=== PATIENT | male | born 1970 | race Caucasian/White ===

== ENCOUNTER 2023-12-26 09:34 | Emergency (ER) | payer MEDICAID, OTHER, SELFPAY ==
[~2023-12-26] VITALS: Ht 165.1 cm; Wt 63.6 kg
[2023-12-26 10:02] VITALS: BP 148/87; TEMP 97.7; O2SAT 98
[2023-12-26 10:44] LABS: HEMATOCRIT 40.3 % (42.0-52.0); MEAN CORPUSCULAR HEMOGLOBIN 32.2 pg (27.0-33.0); MEAN CORPUSCULAR HGB CONC 34.7 g/dl (32.0-36.5); MEAN CORPUSCULAR VOLUME 92.6 fl (80.0-96.0); PLATELET COUNT, AUTOMATED 341 10^3/uL (150-450); RED BLOOD COUNT 4.35 10^6/uL (4.30-6.10); WHITE BLOOD COUNT 12.1 10^3/uL (4.0-10.0)
[2023-12-26 11:12] LABS: AMPHETAMINES LEVEL URINE NEGATIVE (NEGATIVE); BARBITURATES URINE NEGATIVE (NEGATIVE); BENZODIAZEPINES URINE NEGATIVE (NEGATIVE); COCAINE METABOLITE URINE NEGATIVE (NEGATIVE); METHADONE URINE NEGATIVE (NEGATIVE); OPIATES URINE NEGATIVE (NEGATIVE); PHENCYCLIDINE URINE NEGATIVE (NEGATIVE)
[2023-12-26 11:18] LABS: ETHYL ALCOHOL (ETHANOL) 0.004 % (0.000-0.010)
[2023-12-26 11:20] LABS: ALBUMIN 3.3 G/DL (3.2-5.2); ALKALINE PHOSPHATASE 73 U/L (46-116); ALT/SGPT 17 U/L (7.0-40); AST/SGOT 25 U/L (<34); BILIRUBIN,DIRECT 0.2 MG/DL (<0.4); BILIRUBIN,TOTAL 0.5 MG/DL (0.3-1.2); BLOOD UREA NITROGEN 9 MG/DL (9-23); CALCIUM LEVEL 9.4 MG/DL (8.5-10.1); CARBON DIOXIDE LEVEL 27 MMOL/L (20-31); CHLORIDE LEVEL 105 MMOL/L (98-107); CREATININE FOR GFR 0.59 MG/DL (0.70-1.30); GLOMERULAR FILTRATION RATE > 60.0 (>56); GLUCOSE, FASTING 101 MG/DL (60-100); POTASSIUM SERUM 4.1 MMOL/L (3.5-5.1); SALICYLATE LEVEL < 3.0 MG/DL (<30); SODIUM LEVEL 136 MMOL/L (136-145); TOTAL PROTEIN 6.7 G/DL (5.7-8.2)
[2023-12-26 11:21] LABS: CANNABINOIDS URINE POSITIVE (NEGATIVE)
[2023-12-26] MEDS: FOLIC ACID 1MG TAB PO SCH (11:50)
[2023-12-26] MEDS: THIAMINE 100 MG TAB PO SCH (11:50)
[2023-12-26] MEDS: MULTIVITAMINS/MINERALS THERAP 1 TAB PO SCH (11:50)
[2023-12-26] MEDS ORDERED: LORazepam 2 MG TAB PO PRN (12:00)
== END 2023-12-26 12:27 | disposition home or self-care (01) ==
LOC: M ED 09:34
DX: F43.0 Acute stress reaction (principal); F17.210 Nicotine dependence, cigarettes, uncomplicated; F10.10 Alcohol abuse, uncomplicated

== ENCOUNTER → 2024-12-24 | Outpatient (CLI) | payer OTHER | LOC: M RAD 13:50 | PROVIDERS: ATTEND Neurological Surgery | DX: M50.00 Cervical disc disorder with myelopathy, unspecified cervical region (principal) ==

== ENCOUNTER 2025-01-22 09:47 | Observation (INO) | payer OTHER ==
[~2025-01-22] VITALS: Ht 162.6 cm; Wt 71.0 kg
[~2025-01-22 09:47] MED LIST: GABA-1171 PO
[2025-01-22] MEDS: LR 1,000 ML IV SCH ×2 (10:29→20:25)
[2025-01-22] MEDS ORDERED: FAMOTIDINE 20 MG/2 ML VIAL IVP ONE (10:30)
[2025-01-22] MEDS ORDERED: GABAPENTIN 300 MG CAP PO ONE (10:30)
[2025-01-22] MEDS ORDERED: LIDOCAINE 2% 100 MG/5 ML SDV (FOR ANES.) As Ordered ONE (10:45)
[2025-01-22] MEDS ORDERED: SUCCINYLCHOLINE 100MG/5ML SYRINGE As Ordered ONE (10:45)
[2025-01-22] MEDS ORDERED: ROCURONIUM BROMIDE 50MG/5ML VIAL As Ordered ONE (10:45)
[2025-01-22] MEDS ORDERED: MIDAZOLAM INJ 2 MG/2 ML VIAL As Ordered ONE (10:46)
[2025-01-22] MEDS ORDERED: REMIFENTANIL 1MG VIAL As Ordered ONE (11:16)
[2025-01-22] MEDS ORDERED: PHENYLEPHRINE 10MG/ML 1ML VIAL As Ordered ONE (12:47)
[2025-01-22] MEDS: LIDOCAINE W/EPINEPHrine 1% 20 ML VIAL As Ordered ONE (12:57)
[2025-01-22] MEDS: ceFAZolin SOD 2 GM IV ONCE IV ONE (13:44)
[2025-01-22] MEDS ORDERED: LABETALOL 100 MG/20 ML VIAL As Ordered ONE (14:37)
[2025-01-22] MEDS ORDERED: PROPOFOL 1,000 MG/100 ML VIAL As Ordered ONE (14:51)
[2025-01-22] MEDS ORDERED: PHENYLephrine 500MCG 5ML (100MCG/ML) SYRINGE As Ordered ONE (14:51)
[2025-01-22] MEDS ORDERED: SEVOFLURANE INHAL SOLN 250 ML BTL As Ordered ONE (15:39)
[2025-01-22] MEDS ORDERED: ACETAMINOPHEN 1000MG/100ML IV BAG As Ordered ONE (16:35)
[2025-01-22] MEDS ORDERED: HYDROmorphone HCL 2 MG/ML 1 ML VIAL As Ordered ONE (20:00)
[2025-01-22] MEDS ORDERED: ONDANSETRON 4MG/2ML VIAL As Ordered ONE (20:06)
[2025-01-22] MEDS ORDERED: ONDANSETRON 4MG/2ML VIAL IV PRN ×2 (20:25→20:55)
[2025-01-22] MEDS ORDERED: CYCLOBENZAPRINE 10 MG TABLET PO PRN (20:55)
[2025-01-22] MEDS ORDERED: METOPROLOL 5 MG/5 ML VIAL IV PRN (20:55)
[2025-01-22] MEDS: NS (Normal Saline) 0.9% 1,000 ML IV ONE (20:55)
[2025-01-22] MEDS: HYDROMORPHONE HCL 0.5 MG/0.5 ML SYRINGE IV PRN (20:58)
[2025-01-22] MEDS: LABETALOL 100 MG/20 ML VIAL IV PRN (21:12)
[2025-01-22 22:20] VITALS: BP 161/88; TEMP 96.8; O2SAT 95
[2025-01-22] MEDS: hydrALAZINE 20 MG/ML 1 ML VIAL IV PRN (22:45)
[2025-01-22] MEDS: ACETAMINOPHEN 325 MG TAB PO SCH (22:46)
[2025-01-22] MEDS: SENNA 8.6 MG TAB PO SCH (22:46)
[2025-01-22] MEDS: DOCUSATE SODIUM 100 MG CAPSULE PO SCH (22:46)
[2025-01-22 22:50] VITALS: BP 157/79; TEMP 97.4; O2SAT 95
[2025-01-22 23:20] VITALS: BP 157/82; TEMP 97.6; O2SAT 97
[2025-01-22] MEDS: ceFAZolin SODIUM 2 GM in DEXTROSE 5% (D5W) ADV/MINI-BAG 50 ML IV SCH (23:20)
[2025-01-22] MEDS: CHLORASEPTIC SPRAY MT PRN (23:53)
[2025-01-23] VITALS (13 sets, daily range): BP systolic 145–164; BP diastolic 69–84; TEMP 97.1–97.9; O2SAT 95–97
[2025-01-23 05:41] LABS: PLATELET COUNT, AUTOMATED 291 10^3/uL (150-450)
[2025-01-23 06:13] LABS: CALCIUM LEVEL 8.7 MG/DL (8.5-10.1); CARBON DIOXIDE LEVEL 28 MMOL/L (20-31); CHLORIDE LEVEL 105 MMOL/L (98-107); CREATININE FOR GFR 0.86 MG/DL (0.70-1.30); GLOMERULAR FILTRATION RATE > 90.0 (>56); POTASSIUM SERUM 4.1 MMOL/L (3.5-5.1); SODIUM LEVEL 141 MMOL/L (136-145)
[2025-01-23] MEDS ORDERED: HOME MED LIST COMPLETE! XX SCH (08:20)
[2025-01-23] MEDS ORDERED: SENN18TA PO (14:27)
[2025-01-23] MEDS ORDERED: ONDA-282 PO (14:27)
[2025-01-23] MEDS ORDERED: CHLORSP MT (14:27)
[2025-01-23] MEDS ORDERED: ACET32TAB PO (14:27)
[2025-01-23] MEDS ORDERED: COLA100C5 PO (14:27)
[2025-01-23] MEDS ORDERED: OXYC-517 PO (14:27)
[2025-01-23] MEDS: amLODIPine 5 MG TAB PO SCH (16:10)
[2025-01-24 00:03] VITALS: BP 154/88; TEMP 97; O2SAT 97
[2025-01-24 04:00] VITALS: BP 147/71; TEMP 97.2; O2SAT 96
[2025-01-24 06:10] LABS: PLATELET COUNT, AUTOMATED 279 10^3/uL (150-450)
[2025-01-24 06:42] LABS: CALCIUM LEVEL 8.7 MG/DL (8.5-10.1); CARBON DIOXIDE LEVEL 28 MMOL/L (20-31); CHLORIDE LEVEL 104 MMOL/L (98-107); CREATININE FOR GFR 0.84 MG/DL (0.70-1.30); GLOMERULAR FILTRATION RATE > 90.0 (>56); POTASSIUM SERUM 4.1 MMOL/L (3.5-5.1); SODIUM LEVEL 140 MMOL/L (136-145)
[2025-01-24 07:43] VITALS: BP 166/84; TEMP 97.5; O2SAT 95
[2025-01-24 11:24] VITALS: BP 151/82; TEMP 97.6; O2SAT 96
[2025-01-24] MEDS ORDERED: AMLO1TAB24 PO (12:26)
[2025-01-24] MEDS ORDERED: AMLO1TAB25 PO (13:08)
== END 2025-01-24 14:35 | disposition home or self-care (01) ==
LOC: M SDC 09:47 → M RR INP 09:48 → M PCU 22:30
PROVIDERS: ADMIT Student in an Organized Health Care Education/Training Program; ATTEND Student in an Organized Health Care Education/Training Program
DX: M47.12 Other spondylosis with myelopathy, cervical region (principal); M48.02 Spinal stenosis, cervical region; F41.9 Anxiety disorder, unspecified; R20.2 Paresthesia of skin; F17.210 Nicotine dependence, cigarettes, uncomplicated; Z79.899 Other long term (current) drug therapy
CPT/HCPCS: 20930; 22551; 22552; 22853; 36415; 72040; 76000; 80048; 85027; 86850; 86900; 86901; 88304; 96365; 96366; 96375; 96376; 97116; 97161; 97165; 97530; A6024; C1713; J0131; J0330; J0360; J0688; J1171; J1920; J2250; J2371; J2405; J3010

== ENCOUNTER → 2025-03-08 | Outpatient (CLI) | payer OTHER ==
[~2025-03-08] MED LIST changes: +ACET32TAB PO; +AMLO1TAB24 PO; +AMLO1TAB25 PO; +CHLORSP MT; +COLA100C5 PO; +ONDA-282 PO; +OXYC-517 PO; +SENN18TA PO
== END ==
LOC: M RAD 10:08
PROVIDERS: ATTEND Neurological Surgery
DX: M48.02 Spinal stenosis, cervical region (principal)